=== PATIENT | female | born 1965 | race Two or more races ===

== ENCOUNTER 2017-11-10 14:25 | Emergency (ER) | payer SELFPAY ==
[~2017-11-10] VITALS: Ht 167.6 cm; Wt 62.6 kg
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
[2017-11-10] MEDS ORDERED: ACETAMINOPHEN 325 MG TABLET PO ONE (15:00)
[2017-11-10] MEDS ORDERED: IBUPROFEN 600 MG TABLET PO ONE ×2 (15:00)
[2017-11-10] MEDS ORDERED: ACETAMINOPHEN 325 MG TABLET ONE (15:00)
--- NOTE | 2017-11-10 16:20 | NUR ---
Patient discharged to home in stable condition. Written and verbal after care instructions given. Patient verbalizes understanding of instruction.
[2017-11-10 17:05] VITALS: BP 129/69
== END 2017-11-10 17:05 | disposition home or self-care (01) ==
LOC: ER 14:27
DX: S16.1XXA Strain of muscle, fascia and tendon at neck level, initial encounter (principal); S40.011A Contusion of right shoulder, initial encounter; S00.03XA Contusion of scalp, initial encounter; M50.322 Other cervical disc degeneration at C5-C6 level; Z88.1 Allergy status to other antibiotic agents; W10.8XXA Fall (on) (from) other stairs and steps, initial encounter; Y93.89 Activity, other specified; Y92.218 Other school as the place of occurrence of the external cause; Y99.8 Other external cause status
CPT/HCPCS: 72125; 73030; 99284; A4606; Z7610